=== PATIENT | male | born 1930 | race Caucasian/White ===

== ENCOUNTER 2017-10-25 16:57 | Inpatient (IN) | payer MEDICARE, OTHER ==
[~2017-10-25] VITALS: Ht 188 cm; Wt 107.3 kg
[~2017-10-25 16:57] MED LIST: ESOM40CA39 PO; PRED-188 PO
[2017-10-25] MEDS ORDERED: SODIUM CHLORIDE 0.9% 1,000 ML IV ONE (17:12)
[2017-10-25 18:17] LABS: Hematocrit 39.4 % (41.0-53.0); Hemoglobin 12.7 g/dL (13.5-17.5); Mean Corpuscular Hemoglobin 29.6 pg (28.0-32.0); Mean Corpuscular Hgb Conc. 32.2 g/dL (32.0-36.0); Platelet Count (auto) 244 10^3/uL (140-450); Red Blood Cells 4.29 10^6/uL (4.5-5.90); Red Cell Distribution Width 17.2 % (11.8-14.3)
[2017-10-25 18:28] LABS: INR 0.95 (0.9-1.15); Partial Thromboplastin Time 24.5 sec (22.64-33.71); Prothrombin Time 10.4 sec (9.37-12.3)
[2017-10-25 18:32] LABS: Albumin 2.7 g/dL (3.4-5.0); BUN/Creatinine Ratio 16.8; Calcium 8.9 mg/dL (8.5-10.1); Potassium 4.9 mmol/L (3.5-5.1)
[2017-10-25 18:34] LABS: Bilirubin, Total 0.3 mg/dL (0.2-1.0); Total Protein 6.7 g/dL (6.4-8.2)
[2017-10-25 18:36] LABS: Lactic Acid w/Reflex 3.8 mmol/L (0.4-2.0)
[2017-10-25 18:38] LABS: Band Neutrophils % (manual) 0; Basophils % (manual) 0 (0.0-2.0); Blast Cells 0; Eosinophils % (manual) 0 (0-7); Promyelocytes % 0; Reactive Lymphocytes 0
[2017-10-25 18:51] LABS: Lymphocytes % (manual) 9 (10.0-50.0); Metamyelocytes % 1; Monocytes % (manual) 1 (0-12); Myelocytes % 1
[2017-10-25 20:59] LABS: Urine Bacteria MOD /hpf (None Seen); Urine Blood 2+ /uL (Negative); Urine Specific Gravity 1.018 (1.001-1.035); Urine WBC 2543 /hpf (0 - 3); Urine WBC Clumps PRESENT /hpf (None Seen)
[2017-10-25] MEDS ORDERED: cefTRIAXone 1GM/10ml IVPUSH 10 ML IV ONE (21:15)
[2017-10-26] VITALS (7 sets, daily range): BP systolic 99–139; BP diastolic 62–82
[2017-10-26] MEDS ORDERED: TEMAZEPAM 15 MG CAP PO PRN (02:00)
[2017-10-26 09:51] LABS: Basophils # (auto) 0 uL; Basophils % (auto) 0.3 % (0.0-2.0); Eosinophils # (auto) 0 uL; Eosinophils % (auto) 0.2 % (0.0-7.0); Hematocrit 40.1 % (41.0-53.0); Hemoglobin 12.8 g/dL (13.5-17.5); Lymphocytes # (auto) 3.4 uL; Lymphocytes % (auto) 27.1 % (10.0-50.0); Mean Corpuscular Volume 90.4 fL (80.0-100.0); Monocytes % (auto) 7.8 % (0.0-12.0); Neutrophils % (auto) 64.6 % (37.0-80.0); Nucleated Red Blood Cells % 0.2 %; Platelet Count (auto) 253 10^3/uL (140-450); Red Blood Cells 4.43 10^6/uL (4.5-5.90); Red Cell Distribution Width 17.2 % (11.8-14.3); White Blood Cell 12.4 10^3/uL (4.4-10.8)
[2017-10-26] MEDS: METOPROLOL TARTRATE 25 MG TAB PO SCH ×2 (10:00→21:54)
[2017-10-26] MEDS: AMIODARONE HCL 200 MG TAB PO SCH (10:01)
[2017-10-26] MEDS: predniSONE 5 MG TAB PO SCH (10:01)
[2017-10-26 10:16] LABS: BUN/Creatinine Ratio 18.1; Calcium 8.9 mg/dL (8.5-10.1)
[2017-10-26] MEDS ORDERED: PANTOPRAZOLE 40 MG TAB PO ONE (14:15)
[2017-10-26] MEDS ORDERED: ENOXAPARIN SOD 40 MG/0.4 ML SYRINGE SC ONE (14:15)
[2017-10-26 14:21] LABS: Urine Bacteria NONE SEEN /hpf (None Seen); Urine Blood 1+ /uL (Negative); Urine Mucus FEW (None Seen); Urine Specific Gravity 1.018 (1.001-1.035); Urine WBC 417 /hpf (0 - 3); Urine WBC Clumps PRESENT /hpf (None Seen)
[2017-10-26] MEDS ORDERED: NITR-48 PO (18:23)
[2017-10-26] MEDS: SODIUM CHLORIDE 0.9% 1,000 ML IV SCH (18:47)
[2017-10-26] MEDS ORDERED: AMIO100T3 PO (19:19)
[2017-10-26] MEDS ORDERED: METO25TA5 PO (19:19)
[2017-10-26] MEDS ORDERED: FLUC100T34 PO (19:19)
[2017-10-26] MEDS ORDERED: ZINC20OI TOP (19:19)
[2017-10-26] MEDS ORDERED: ACET-1304 PO (19:19)
[2017-10-26] MEDS: cefTRIAXone 1GM/10ml IVPUSH 10 ML IV SCH (21:52)
[2017-10-27] VITALS (7 sets, daily range): BP systolic 93–117; BP diastolic 53–69
[2017-10-27 06:03] LABS: Hematocrit 37.8 % (41.0-53.0); Hemoglobin 12.4 g/dL (13.5-17.5); Mean Corpuscular Hemoglobin 29.4 pg (28.0-32.0); Mean Corpuscular Hgb Conc. 32.8 g/dL (32.0-36.0); Mean Corpuscular Volume 89.7 fL (80.0-100.0); Platelet Count (auto) 237 10^3/uL (140-450); Red Blood Cells 4.22 10^6/uL (4.5-5.90); Red Cell Distribution Width 17.2 % (11.8-14.3); White Blood Cell 11.6 10^3/uL (4.4-10.8)
[2017-10-27 06:21] LABS: Magnesium 2.2 mg/dL (1.6-2.6); Potassium 3.8 mmol/L (3.5-5.1)
[2017-10-27 06:29] LABS: Band Neutrophils % (manual) 0; Basophils % (manual) 0 (0.0-2.0); Blast Cells 0; Eosinophils % (manual) 0 (0-7); Metamyelocytes % 0; Myelocytes % 0; Promyelocytes % 0; Reactive Lymphocytes 0
[2017-10-27 06:42] LABS: BUN/Creatinine Ratio 18.8
[2017-10-27] MEDS: SODIUM CHLORIDE 0.9% 1,000 ML IV SCH (06:46)
[2017-10-27] MEDS: ONDANSETRON HCL 4 MG/2 ML VIAL IV PRN (06:47)
[2017-10-27 08:08] LABS: Lymphocytes % (manual) 25 (10.0-50.0); Monocytes % (manual) 8 (0-12)
[2017-10-27] MEDS: ENOXAPARIN SOD 40 MG/0.4 ML SYRINGE SC SCH (09:39)
[2017-10-27] MEDS: AMIODARONE HCL 200 MG TAB PO SCH (09:39)
[2017-10-27] MEDS: METOPROLOL TARTRATE 25 MG TAB PO SCH ×2 (09:39→22:00)
[2017-10-27] MEDS: PANTOPRAZOLE 40 MG TAB PO SCH (09:40)
[2017-10-27] MEDS: predniSONE 5 MG TAB PO SCH (09:40)
[2017-10-27] MEDS: cefTRIAXone 1GM/10ml IVPUSH 10 ML IV SCH (22:22)
[2017-10-28 05:25] VITALS: BP 110/67
[2017-10-28] MEDS: SODIUM CHLORIDE 0.9% 1,000 ML IV SCH (05:58)
[2017-10-28 06:16] LABS: Basophils # (auto) 0 uL; Basophils % (auto) 0.1 % (0.0-2.0); Eosinophils # (auto) 0 uL; Eosinophils % (auto) 0.3 % (0.0-7.0); Hematocrit 35.1 % (41.0-53.0); Hemoglobin 11.7 g/dL (13.5-17.5); Lymphocytes # (auto) 2.2 uL; Lymphocytes % (auto) 22.5 % (10.0-50.0); Mean Corpuscular Hemoglobin 29.8 pg (28.0-32.0); Mean Corpuscular Hgb Conc. 33.4 g/dL (32.0-36.0); Mean Corpuscular Volume 89.4 fL (80.0-100.0); Monocytes # (auto) 0.8 uL; Monocytes % (auto) 7.8 % (0.0-12.0); Neutrophils # (auto) 6.8 uL; Neutrophils % (auto) 69.3 % (37.0-80.0); Nucleated Red Blood Cells % 0.1 %; Platelet Count (auto) 213 10^3/uL (140-450); Red Blood Cells 3.93 10^6/uL (4.5-5.90); Red Cell Distribution Width 16.8 % (11.8-14.3); White Blood Cell 9.8 10^3/uL (4.4-10.8)
[2017-10-28 06:30] LABS: Albumin 2.5 g/dL (3.4-5.0); BUN/Creatinine Ratio 17.6; Potassium 3.7 mmol/L (3.5-5.1)
[2017-10-28 06:32] LABS: Bilirubin, Total 0.2 mg/dL (0.2-1.0); Total Protein 5.7 g/dL (6.4-8.2)
[2017-10-28 08:30] VITALS: BP 128/65
[2017-10-28 09:00] VITALS: BP 128/65
[2017-10-28] MEDS: ENOXAPARIN SOD 40 MG/0.4 ML SYRINGE SC SCH (09:42)
[2017-10-28] MEDS: AMIODARONE HCL 200 MG TAB PO SCH (09:43)
[2017-10-28] MEDS: predniSONE 5 MG TAB PO SCH (09:43)
[2017-10-28] MEDS: METOPROLOL TARTRATE 25 MG TAB PO SCH ×2 (09:43→22:13)
[2017-10-28] MEDS: PANTOPRAZOLE 40 MG TAB PO SCH (09:43)
[2017-10-28 13:00] VITALS: BP 110/68
[2017-10-28] MEDS ORDERED: LACTULOSE 20Gm/30ML SOLN PO ONE (15:45)
[2017-10-28] MEDS ORDERED: FUROSEMIDE 40 MG/4 ML VIAL IV ONE (15:45)
[2017-10-28 17:00] VITALS: BP 123/65
[2017-10-28] MEDS: ONDANSETRON HCL 4 MG/2 ML VIAL IV PRN (18:26)
[2017-10-28 22:00] VITALS: BP 111/62
[2017-10-28] MEDS: cefTRIAXone 1GM/10ml IVPUSH 10 ML IV SCH (22:12)
[2017-10-29 05:00] VITALS: BP 117/75
[2017-10-29 07:05] LABS: Hematocrit 40.3 % (41.0-53.0); Hemoglobin 13.3 g/dL (13.5-17.5); Mean Corpuscular Hemoglobin 29.5 pg (28.0-32.0); Mean Corpuscular Hgb Conc. 32.9 g/dL (32.0-36.0); Mean Corpuscular Volume 89.8 fL (80.0-100.0); Platelet Count (auto) 231 10^3/uL (140-450); Red Blood Cells 4.49 10^6/uL (4.5-5.90)
[2017-10-29 07:21] LABS: Albumin 2.9 g/dL (3.4-5.0); BUN/Creatinine Ratio 11.1; Calcium 8.3 mg/dL (8.5-10.1); Potassium 3.4 mmol/L (3.5-5.1)
[2017-10-29 07:24] LABS: Bilirubin, Total 0.3 mg/dL (0.2-1.0); Total Protein 6.8 g/dL (6.4-8.2)
[2017-10-29 07:48] LABS: Band Neutrophils % (manual) 0; Basophils % (manual) 0 (0.0-2.0); Blast Cells 0; Eosinophils % (manual) 0 (0-7); Metamyelocytes % 0; Myelocytes % 0; Promyelocytes % 0; Reactive Lymphocytes 0
[2017-10-29 08:00] VITALS: BP 93/55
[2017-10-29] MEDS: AMIODARONE HCL 200 MG TAB PO SCH (09:21)
[2017-10-29] MEDS: predniSONE 5 MG TAB PO SCH (09:21)
[2017-10-29] MEDS: METOPROLOL TARTRATE 25 MG TAB PO SCH ×2 (09:21→22:18)
[2017-10-29] MEDS: ACETAMINOPHEN 500 MG TAB PO PRN (09:22)
[2017-10-29] MEDS: PANTOPRAZOLE 40 MG TAB PO SCH (09:22)
[2017-10-29] MEDS: ENOXAPARIN SOD 40 MG/0.4 ML SYRINGE SC SCH (09:22)
[2017-10-29 10:35] LABS: Lymphocytes % (manual) 17 (10.0-50.0); Monocytes % (manual) 11 (0-12)
[2017-10-29 12:00] VITALS: BP 95/52
[2017-10-29 17:00] VITALS: BP 100/53
[2017-10-29] MEDS: PIPERACILLIN-TAZOB 2.25GM 50 ML IV SCH (18:02)
[2017-10-29] MEDS ORDERED: PIPERACILLIN-TAZOB 2.25GM 50 ML IV ONE ×2 (20:25→20:26)
[2017-10-29 21:53] VITALS: BP 106/53
[2017-10-29] MEDS: ONDANSETRON HCL 4 MG/2 ML VIAL IV PRN (22:19)
[2017-10-30] MEDS: PIPERACILLIN-TAZOB 2.25GM 50 ML IV SCH ×4 (00:04→18:44)
[2017-10-30 04:54] VITALS: BP 110/58
[2017-10-30 08:00] VITALS: BP 110/60
[2017-10-30] MEDS: AMIODARONE HCL 200 MG TAB PO SCH (09:53)
[2017-10-30] MEDS: predniSONE 5 MG TAB PO SCH (09:53)
[2017-10-30] MEDS: PANTOPRAZOLE 40 MG TAB PO SCH (09:53)
[2017-10-30] MEDS: METOPROLOL TARTRATE 25 MG TAB PO SCH ×2 (09:54→22:00)
[2017-10-30] MEDS: ENOXAPARIN SOD 40 MG/0.4 ML SYRINGE SC SCH (09:54)
[2017-10-30 11:53] VITALS: BP 135/62
[2017-10-30 17:03] VITALS: BP 93/58
[2017-10-30 17:49] VITALS: BP 118/62
[2017-10-30] MEDS: ONDANSETRON HCL 4 MG/2 ML VIAL IV PRN (18:07)
[2017-10-30 22:00] VITALS: BP 91/52
[2017-10-31] VITALS (8 sets, daily range): BP systolic 92–114; BP diastolic 52–67
[2017-10-31] MEDS: PIPERACILLIN-TAZOB 2.25GM 50 ML IV SCH ×4 (00:19→18:17)
[2017-10-31] MEDS: ONDANSETRON HCL 4 MG/2 ML VIAL IV PRN ×3 (05:39→18:17)
[2017-10-31] MEDS: ACETAMINOPHEN 500 MG TAB PO PRN ×2 (09:49→20:02)
[2017-10-31] MEDS: PANTOPRAZOLE 40 MG TAB PO SCH (09:50)
[2017-10-31] MEDS: AMIODARONE HCL 200 MG TAB PO SCH (09:50)
[2017-10-31] MEDS: METOPROLOL TARTRATE 25 MG TAB PO SCH ×2 (09:50→22:00)
[2017-10-31] MEDS: ENOXAPARIN SOD 40 MG/0.4 ML SYRINGE SC SCH (09:57)
[2017-10-31] MEDS: predniSONE 5 MG TAB PO SCH (10:00)
[2017-10-31] MEDS: BUDESONIDE (INHALATION) 0.5 MG/2 ML NEB NEB SCH (18:58)
[2017-10-31] MEDS: IPRATROPIUM BROM 0.5 MG/2.5ML INH SOL NEB SCH ×2 (18:58→22:23)
[2017-11-01] MEDS: PIPERACILLIN-TAZOB 2.25GM 50 ML IV SCH ×5 (00:01→23:55)
[2017-11-01] MEDS: IPRATROPIUM BROM 0.5 MG/2.5ML INH SOL NEB SCH ×6 (02:28→22:47)
[2017-11-01 05:00] VITALS: BP 135/72
[2017-11-01] MEDS: BUDESONIDE (INHALATION) 0.5 MG/2 ML NEB NEB SCH ×2 (06:45→18:44)
[2017-11-01 06:49] LABS: Basophils # (auto) 0 uL; Basophils % (auto) 0.2 % (0.0-2.0); Eosinophils # (auto) 0 uL; Eosinophils % (auto) 0.2 % (0.0-7.0); Hematocrit 37.9 % (41.0-53.0); Hemoglobin 12.7 g/dL (13.5-17.5); Lymphocytes # (auto) 1.9 uL; Lymphocytes % (auto) 30.7 % (10.0-50.0); Mean Corpuscular Hemoglobin 30.1 pg (28.0-32.0); Mean Corpuscular Hgb Conc. 33.5 g/dL (32.0-36.0); Mean Corpuscular Volume 89.8 fL (80.0-100.0); Monocytes # (auto) 0.6 uL; Monocytes % (auto) 9.9 % (0.0-12.0); Neutrophils # (auto) 3.6 uL; Nucleated Red Blood Cells % 0.2 %; Platelet Count (auto) 149 10^3/uL (140-450); Red Blood Cells 4.23 10^6/uL (4.5-5.90); Red Cell Distribution Width 17.2 % (11.8-14.3); White Blood Cell 6.1 10^3/uL (4.4-10.8)
[2017-11-01 07:12] LABS: Albumin 2.6 g/dL (3.4-5.0); BUN/Creatinine Ratio 7.9; Bilirubin, Total 0.3 mg/dL (0.2-1.0); Calcium 8.3 mg/dL (8.5-10.1); Potassium 3.5 mmol/L (3.5-5.1); Total Protein 6.4 g/dL (6.4-8.2)
[2017-11-01 09:00] VITALS: BP 141/72
[2017-11-01] MEDS: predniSONE 5 MG TAB PO SCH (09:35)
[2017-11-01] MEDS: PANTOPRAZOLE 40 MG TAB PO SCH (09:35)
[2017-11-01] MEDS: METOPROLOL TARTRATE 25 MG TAB PO SCH ×2 (09:35→22:07)
[2017-11-01] MEDS: AMIODARONE HCL 200 MG TAB PO SCH (09:36)
[2017-11-01] MEDS: ENOXAPARIN SOD 40 MG/0.4 ML SYRINGE SC SCH (09:36)
[2017-11-01] MEDS: HYDROcodone-ACET 5/325MG TAB PO PRN (12:31)
[2017-11-01 13:00] VITALS: BP 100/58
[2017-11-01] MEDS: ACETAMINOPHEN 500 MG TAB PO PRN (16:33)
[2017-11-01 16:47] VITALS: BP 94/58
[2017-11-01] MEDS: BOOST PLUS 8 ounce PO SCH (18:00)
[2017-11-01 20:00] VITALS: BP 112/69
[2017-11-01 21:52] VITALS: BP 112/69
[2017-11-02] MEDS: IPRATROPIUM BROM 0.5 MG/2.5ML INH SOL NEB SCH ×5 (02:34→18:30)
[2017-11-02 05:00] VITALS: BP 121/72
[2017-11-02] MEDS: HYDROcodone-ACET 5/325MG TAB PO PRN ×2 (05:08→09:53)
[2017-11-02] MEDS: PIPERACILLIN-TAZOB 2.25GM 50 ML IV SCH ×3 (05:59→16:33)
[2017-11-02] MEDS: BUDESONIDE (INHALATION) 0.5 MG/2 ML NEB NEB SCH (07:24)
[2017-11-02] MEDS: BOOST PLUS 8 ounce PO SCH ×3 (08:00→18:10)
[2017-11-02 08:58] VITALS: BP 150/79
[2017-11-02] MEDS: AMIODARONE HCL 200 MG TAB PO SCH (09:53)
[2017-11-02] MEDS: ENOXAPARIN SOD 40 MG/0.4 ML SYRINGE SC SCH (09:53)
[2017-11-02] MEDS: PANTOPRAZOLE 40 MG TAB PO SCH (09:54)
[2017-11-02] MEDS: METOPROLOL TARTRATE 25 MG TAB PO SCH (09:54)
[2017-11-02] MEDS: predniSONE 5 MG TAB PO SCH (09:54)
[2017-11-02 16:29] VITALS: BP 119/69
[2017-11-02] MEDS: ONDANSETRON HCL 4 MG/2 ML VIAL IV PRN (18:34)
== END 2017-11-02 19:20 | disposition hospice, home (50) | DRG 698 ==
LOC: EDUNIT# 16:57 → EDBD 16:57 → ER 16:57 → TELE 16:58 → TELE-WESTW 10-26 09:01
PROVIDERS: ADMIT Nurse Practitioner Family; ATTEND Internal Medicine
DX: T83.518A Infection and inflammatory reaction due to other urinary catheter, initial encounter (principal); A41.9 Sepsis, unspecified organism; N17.0 Acute kidney failure with tubular necrosis; E43 Unspecified severe protein-calorie malnutrition; K51.90 Ulcerative colitis, unspecified, without complications; E88.09 Other disorders of plasma-protein metabolism, not elsewhere classified; I13.0 Hypertensive heart and chronic kidney disease with heart failure and stage 1 through stage 4 chronic kidney disease, or unspecified chronic kidney disease; I50.9 Heart failure, unspecified; N18.3 Chronic kidney disease, stage 3 (moderate); N30.00 Acute cystitis without hematuria; I48.0 Paroxysmal atrial fibrillation; D64.9 Anemia, unspecified; K59.00 Constipation, unspecified; Z66 Do not resuscitate; J44.9 Chronic obstructive pulmonary disease, unspecified; E66.9 Obesity, unspecified; B96.5 Pseudomonas (aeruginosa) (mallei) (pseudomallei) as the cause of diseases classified elsewhere; Y83.9 Surgical procedure, unspecified as the cause of abnormal reaction of the patient, or of later complication, without mention of misadventure at the time of the procedure; Z68.30 Body mass index [BMI] 30.0-30.9, adult; Z74.01 Bed confinement status; Z88.1 Allergy status to other antibiotic agents; Z79.899 Other long term (current) drug therapy; Z90.49 Acquired absence of other specified parts of digestive tract
CPT/HCPCS: 36415; 51702; 71045; 80048; 80053; 81001; 83605; 83735; 85007; 85025; 85027; 85610; 85730; 87040; 87086; 87088; 87186; 87493; 93005; 94640; 94761; 96361; 96374; J2405; J2543

== ENCOUNTER 2017-11-08 07:30 | Inpatient (IN) | payer MEDICARE, OTHER ==
[~2017-11-08] VITALS: Ht 188 cm; Wt 116.1 kg
[~2017-11-08 07:30] MED LIST changes: +ACET-1304 PO; +AMIO100T3 PO; -ESOM40CA39 PO; +FLUC100T34 PO; +METO25TA5 PO; +NITR-48 PO; +ZINC20OI TOP
[2017-11-08 08:29] LABS: Basophils # (auto) 0 uL; Basophils % (auto) 0.3 % (0.0-2.0); Eosinophils # (auto) 0 uL; Eosinophils % (auto) 0.2 % (0.0-7.0); Hematocrit 39.8 % (41.0-53.0); Hemoglobin 13.1 g/dL (13.5-17.5); Lymphocytes # (auto) 1.6 uL; Lymphocytes % (auto) 20.3 % (10.0-50.0); Mean Corpuscular Hemoglobin 29.2 pg (28.0-32.0); Mean Corpuscular Hgb Conc. 32.9 g/dL (32.0-36.0); Mean Corpuscular Volume 88.7 fL (80.0-100.0); Monocytes # (auto) 0.9 uL; Monocytes % (auto) 11.2 % (0.0-12.0); Neutrophils # (auto) 5.4 uL; Nucleated Red Blood Cells % 0.2 %; Platelet Count (auto) 208 10^3/uL (140-450); Red Blood Cells 4.49 10^6/uL (4.5-5.90); Red Cell Distribution Width 17.7 % (11.8-14.3)
[2017-11-08 08:45] LABS: Albumin 2.7 g/dL (3.4-5.0); BUN/Creatinine Ratio 6.9; Bilirubin, Total 0.6 mg/dL (0.2-1.0); Potassium 3.8 mmol/L (3.5-5.1); Total Protein 7.1 g/dL (6.4-8.2)
[2017-11-08] MEDS ORDERED: SODIUM CHLORIDE 0.9% 1,000 ML IV ONE (08:54)
[2017-11-08] MEDS ORDERED: cefTRIAXone 1GM/10ml IVPUSH 10 ML IV ONE (09:00)
[2017-11-08 10:03] LABS: Urine Bacteria NONE SEEN /hpf (None Seen); Urine Blood 3+ /uL (Negative); Urine Budding Yeast MANY /hpf (None Seen); Urine WBC 2628 /hpf (0 - 3)
[2017-11-08 10:17] LABS: INR 0.99 (0.9-1.15); Partial Thromboplastin Time 24.5 sec (22.64-33.71); Prothrombin Time 10.8 sec (9.37-12.3)
[2017-11-08] MEDS ORDERED: AMIODARONE HCL 200 MG TAB PO ONE (10:45)
[2017-11-08] MEDS ORDERED: METOPROLOL TARTRATE 25 MG TAB PO ONE (10:45)
[2017-11-08] MEDS ORDERED: FLUCONAZOLE 100 MG TAB PO ONE (10:45)
[2017-11-08] MEDS ORDERED: predniSONE 20 MG TAB PO ONE (10:45)
[2017-11-08] MEDS: SODIUM CHLORIDE 0.9% 1,000 ML IV SCH ×2 (10:50→19:33)
[2017-11-08] MEDS ORDERED: HYDROcodone-ACET 5/325MG TAB PO PRN (11:00)
[2017-11-08] MEDS ORDERED: ONDANSETRON HCL 4 MG/2 ML VIAL IV PRN (11:00)
[2017-11-08] MEDS ORDERED: TEMAZEPAM 15 MG CAP PO PRN (11:00)
[2017-11-08] MEDS ORDERED: ACETAMINOPHEN 325 MG TAB PO PRN (11:00)
[2017-11-08] MEDS ORDERED: MORPHINE SULFATE 4 MG/ML SYR/VIAL IV PRN (11:00)
[2017-11-08] MEDS ORDERED: FAMOTIDINE 20 MG TAB PO SCH (11:30)
[2017-11-08] MEDS: BOOST PLUS 8 ounce PO SCH ×2 (12:00→18:00)
[2017-11-08] MEDS: ZINC OXIDE 20 % OINT 30GM TOP SCH ×2 (12:00→18:00)
[2017-11-08] MEDS: METOPROLOL TARTRATE 25 MG TAB PO SCH (22:00)
[2017-11-08] MEDS: PANTOPRAZOLE 40 MG TAB PO SCH (22:00)
[2017-11-08] MEDS: ASCORBIC ACID 500 MG TAB PO SCH (22:00)
[2017-11-08] MEDS ORDERED: METOPROLOL TARTRATE 1MG/1ML-5ML VIAL IV ONE (23:00)
[2017-11-08] MEDS ORDERED: PANTOPRAZOLE 40 MG/10 ML VIAL IV ONE (23:00)
[2017-11-08 23:30] VITALS: BP 133/73
[2017-11-08 23:57] VITALS: BP 133/73
[2017-11-09] MEDS: SODIUM CHLORIDE 0.9% 1,000 ML IV SCH ×3 (05:28→22:00)
[2017-11-09 05:54] VITALS: BP 155/75
[2017-11-09] MEDS: BOOST PLUS 8 ounce PO SCH ×3 (07:27→18:00)
[2017-11-09 07:29] LABS: Basophils # (auto) 0 uL; Basophils % (auto) 0.3 % (0.0-2.0); Eosinophils # (auto) 0.1 uL; Eosinophils % (auto) 1.6 % (0.0-7.0); Hematocrit 39.4 % (41.0-53.0); Hemoglobin 12.7 g/dL (13.5-17.5); Lymphocytes # (auto) 2.4 uL; Lymphocytes % (auto) 28.1 % (10.0-50.0); Mean Corpuscular Hemoglobin 29.3 pg (28.0-32.0); Mean Corpuscular Hgb Conc. 32.3 g/dL (32.0-36.0); Mean Corpuscular Volume 90.7 fL (80.0-100.0); Monocytes # (auto) 0.9 uL; Monocytes % (auto) 10.7 % (0.0-12.0); Neutrophils # (auto) 5.1 uL; Neutrophils % (auto) 59.3 % (37.0-80.0); Nucleated Red Blood Cells % 0.1 %; Platelet Count (auto) 231 10^3/uL (140-450); Red Blood Cells 4.34 10^6/uL (4.5-5.90); Red Cell Distribution Width 17.9 % (11.8-14.3); White Blood Cell 8.6 10^3/uL (4.4-10.8)
[2017-11-09 07:47] LABS: Albumin 2.6 g/dL (3.4-5.0); Calcium 8.5 mg/dL (8.5-10.1); Potassium 3.8 mmol/L (3.5-5.1)
[2017-11-09 07:51] LABS: BUN/Creatinine Ratio 6.8
[2017-11-09 07:53] LABS: Bilirubin, Total 0.5 mg/dL (0.2-1.0); Total Protein 6.6 g/dL (6.4-8.2)
[2017-11-09] MEDS ORDERED: NALOXONE HCL 0.4 MG/ML VIAL ONE (08:14)
[2017-11-09] MEDS ORDERED: LIDOCAINE VISCOUS 2% 15ML UD ONE (08:14)
[2017-11-09] MEDS ORDERED: SODIUM CHLORIDE LOCK 10 ML ONE (08:14)
[2017-11-09] MEDS ORDERED: FLUMAZENIL 0.1 MG/ML INJ 10ML MDV IV ONE (08:14)
[2017-11-09 08:15] VITALS: BP 127/67
[2017-11-09] MEDS ORDERED: MIDAZOLAM HCL 5 MG/ML-1ML VIAL ONE (08:15)
[2017-11-09] MEDS ORDERED: fentaNYL CITRATE 100 MCG/2 ML VL ONE (08:16)
[2017-11-09] MEDS ORDERED: diphenhdrAMINE HCL 50 MG/1 ML VL ONE (08:16)
[2017-11-09 08:33] VITALS: BP 127/67
[2017-11-09] MEDS ORDERED: cefTRIAXone 1GM/10ml IVPUSH 10 ML IV SCH (09:00)
[2017-11-09] MEDS: FLUCONAZOLE 100 MG TAB PO SCH (10:00)
[2017-11-09] MEDS: METOPROLOL TARTRATE 25 MG TAB PO SCH ×2 (10:00→22:38)
[2017-11-09] MEDS: PANTOPRAZOLE 40 MG TAB PO SCH ×2 (10:00→22:38)
[2017-11-09] MEDS: ASCORBIC ACID 500 MG TAB PO SCH ×2 (10:00→22:38)
[2017-11-09] MEDS: AMIODARONE HCL 200 MG TAB PO SCH (10:00)
[2017-11-09] MEDS: predniSONE 20 MG TAB PO SCH (10:00)
[2017-11-09] MEDS: MULTIPLE VITAMIN TAB PO SCH (10:00)
[2017-11-09] MEDS: ZINC OXIDE 20 % OINT 30GM TOP SCH ×3 (12:00→18:00)
[2017-11-09] MEDS ORDERED: VANCOMYCIN 1GM/250ML 250 ML IV ONE (15:30)
[2017-11-09] MEDS ORDERED: VANCOMYCIN PER PHARMACY 0 MG IV SCH (15:30)
[2017-11-09] MEDS ORDERED: VANCOMYCIN 1,500 MG in D5W 5% 250 ML IV ONE (16:30)
[2017-11-09 16:37] VITALS: BP 139/88
[2017-11-09 20:00] VITALS: BP 119/73
[2017-11-09 21:57] VITALS: BP 119/73
[2017-11-10] MEDS ORDERED: PNEUMOCOCCAL VACC POLYS 25 MCG/0.5 ML VIAL IM ONE (04:30)
[2017-11-10] MEDS ORDERED: INFLUENZA QUAD 2017-2018 0.5 ML SYRG IM ONE (04:30)
[2017-11-10 04:58] VITALS: BP 136/73
[2017-11-10] MEDS: ZINC OXIDE 20 % OINT 30GM TOP SCH ×4 (06:00→18:00)
[2017-11-10] MEDS: SODIUM CHLORIDE 0.9% 1,000 ML IV SCH ×3 (06:28→21:24)
[2017-11-10 06:57] LABS: Basophils # (auto) 0 uL; Basophils % (auto) 0.2 % (0.0-2.0); Eosinophils # (auto) 0.1 uL; Eosinophils % (auto) 2.1 % (0.0-7.0); Hematocrit 38.2 % (41.0-53.0); Hemoglobin 12.6 g/dL (13.5-17.5); Lymphocytes # (auto) 1.4 uL; Lymphocytes % (auto) 24.9 % (10.0-50.0); Mean Corpuscular Hemoglobin 29.8 pg (28.0-32.0); Mean Corpuscular Hgb Conc. 33.1 g/dL (32.0-36.0); Mean Corpuscular Volume 90.1 fL (80.0-100.0); Monocytes # (auto) 0.6 uL; Monocytes % (auto) 11.2 % (0.0-12.0); Neutrophils # (auto) 3.4 uL; Neutrophils % (auto) 61.6 % (37.0-80.0); Nucleated Red Blood Cells % 0.1 %; Platelet Count (auto) 197 10^3/uL (140-450); Red Blood Cells 4.24 10^6/uL (4.5-5.90); Red Cell Distribution Width 17.9 % (11.8-14.3); White Blood Cell 5.5 10^3/uL (4.4-10.8)
[2017-11-10 07:14] LABS: Albumin 2.5 g/dL (3.4-5.0); BUN/Creatinine Ratio 7.2; Calcium 8.4 mg/dL (8.5-10.1); Potassium 3.4 mmol/L (3.5-5.1)
[2017-11-10 07:23] LABS: Bilirubin, Total 0.4 mg/dL (0.2-1.0); Total Protein 6.5 g/dL (6.4-8.2)
[2017-11-10 08:00] VITALS: BP 146/74
[2017-11-10] MEDS: BOOST PLUS 8 ounce PO SCH ×3 (08:00→18:26)
[2017-11-10] MEDS ORDERED: CIPROFLOXACIN HCL 500 MG TAB PO SCH (10:00)
[2017-11-10 12:00] VITALS: BP_SYST 145; BP_SYST 159; BP_DIAS 67; BP_DIAS 77
[2017-11-10] MEDS: LEVOFLOXACIN 500MG 100 ML IV SCH (12:03)
[2017-11-10] MEDS: AMIODARONE HCL 200 MG TAB PO SCH (12:04)
[2017-11-10] MEDS: predniSONE 20 MG TAB PO SCH (12:04)
[2017-11-10] MEDS: FLUCONAZOLE 100 MG TAB PO SCH (12:04)
[2017-11-10] MEDS: METOPROLOL TARTRATE 25 MG TAB PO SCH ×2 (12:05→22:47)
[2017-11-10] MEDS: MULTIPLE VITAMIN TAB PO SCH (12:06)
[2017-11-10] MEDS: PANTOPRAZOLE 40 MG TAB PO SCH ×2 (12:06→22:47)
[2017-11-10] MEDS: ASCORBIC ACID 500 MG TAB PO SCH ×2 (12:06→22:48)
[2017-11-10 17:00] VITALS: BP 133/81
[2017-11-10] MEDS: METOCLOPRAMIDE HCL 5MG/ml INJ 2ml VIAL IV SCH (18:26)
[2017-11-10] MEDS: VANCOMYCIN 1,250 MG in D5W 5% 250 ML IV SCH (20:04)
[2017-11-10 22:00] VITALS: BP 135/76
[2017-11-10] MEDS ORDERED: FAMOTIDINE (10MG/ML) 2ML VL IV SCH (22:00)
[2017-11-10] MEDS: FAMOTIDINE (10MG/ML) 2ML VL IV SCH (22:47)
[2017-11-11] MEDS: METOCLOPRAMIDE HCL 5MG/ml INJ 2ml VIAL IV SCH ×4 (01:03→18:24)
[2017-11-11 05:00] VITALS: BP_SYST 110; BP_SYST 93; BP_DIAS 60; BP_DIAS 64
[2017-11-11] MEDS: SODIUM CHLORIDE 0.9% 1,000 ML IV SCH ×3 (05:07→22:18)
[2017-11-11] MEDS: ZINC OXIDE 20 % OINT 30GM TOP SCH ×4 (06:00→18:00)
[2017-11-11 06:52] LABS: Hemoglobin 11.3 g/dL (13.5-17.5); Mean Corpuscular Hgb Conc. 33.3 g/dL (32.0-36.0); Platelet Count (auto) 184 10^3/uL (140-450); Red Blood Cells 3.78 10^6/uL (4.5-5.90); Red Cell Distribution Width 17.3 % (11.8-14.3); White Blood Cell 6.1 10^3/uL (4.4-10.8)
[2017-11-11 07:03] LABS: Albumin 2.2 g/dL (3.4-5.0); BUN/Creatinine Ratio 7.4; Calcium 8.1 mg/dL (8.5-10.1); Potassium 3.6 mmol/L (3.5-5.1)
[2017-11-11 07:14] LABS: Bilirubin, Total 0.4 mg/dL (0.2-1.0)
[2017-11-11 07:19] LABS: Basophils % (manual) 0 (0.0-2.0); Blast Cells 0; Eosinophils % (manual) 0 (0-7); Metamyelocytes % 0; Myelocytes % 0; Promyelocytes % 0; Reactive Lymphocytes 0
[2017-11-11] MEDS: BOOST PLUS 8 ounce PO SCH ×3 (08:00→18:20)
[2017-11-11 08:29] LABS: Band Neutrophils % (manual) 2; Lymphocytes % (manual) 6 (10.0-50.0); Monocytes % (manual) 6 (0-12)
[2017-11-11 09:00] VITALS: BP 116/60
[2017-11-11] MEDS: LEVOFLOXACIN 500MG 100 ML IV SCH (10:37)
[2017-11-11] MEDS: FAMOTIDINE (10MG/ML) 2ML VL IV SCH ×2 (10:37→22:17)
[2017-11-11] MEDS: FLUCONAZOLE 100 MG TAB PO SCH (10:37)
[2017-11-11] MEDS: ASCORBIC ACID 500 MG TAB PO SCH ×2 (10:38→22:18)
[2017-11-11] MEDS: AMIODARONE HCL 200 MG TAB PO SCH (10:38)
[2017-11-11] MEDS: predniSONE 20 MG TAB PO SCH (10:38)
[2017-11-11] MEDS: MULTIPLE VITAMIN TAB PO SCH (10:38)
[2017-11-11] MEDS: PANTOPRAZOLE 40 MG TAB PO SCH ×2 (10:38→22:18)
[2017-11-11] MEDS: METOPROLOL TARTRATE 25 MG TAB PO SCH ×2 (10:39→22:18)
[2017-11-11 13:00] VITALS: BP 124/58
[2017-11-11 17:00] VITALS: BP 100/52
[2017-11-11] MEDS: VANCOMYCIN 1,250 MG in D5W 5% 250 ML IV SCH (20:21)
[2017-11-11 22:00] VITALS: BP 114/61
[2017-11-12] MEDS: METOCLOPRAMIDE HCL 5MG/ml INJ 2ml VIAL IV SCH ×4 (00:45→17:38)
[2017-11-12 05:00] VITALS: BP 118/65
[2017-11-12] MEDS: ZINC OXIDE 20 % OINT 30GM TOP SCH ×4 (05:31→17:39)
[2017-11-12] MEDS: SODIUM CHLORIDE 0.9% 1,000 ML IV SCH ×3 (05:41→23:10)
[2017-11-12 05:51] LABS: Hematocrit 32.6 % (41.0-53.0); Hemoglobin 10.9 g/dL (13.5-17.5); Mean Corpuscular Hemoglobin 29.8 pg (28.0-32.0); Mean Corpuscular Hgb Conc. 33.3 g/dL (32.0-36.0); Mean Corpuscular Volume 89.4 fL (80.0-100.0); Platelet Count (auto) 190 10^3/uL (140-450); Red Blood Cells 3.65 10^6/uL (4.5-5.90); Red Cell Distribution Width 17.3 % (11.8-14.3); White Blood Cell 6.2 10^3/uL (4.4-10.8)
[2017-11-12 05:59] LABS: Band Neutrophils % (manual) 0; Eosinophils % (manual) 0 (0-7)
[2017-11-12 06:00] LABS: Basophils % (manual) 0 (0.0-2.0); Blast Cells 0; Metamyelocytes % 0; Myelocytes % 0; Promyelocytes % 0; Reactive Lymphocytes 0
[2017-11-12 06:03] LABS: Albumin 2.2 g/dL (3.4-5.0); BUN/Creatinine Ratio 8.3; Calcium 8.2 mg/dL (8.5-10.1); Potassium 3.8 mmol/L (3.5-5.1)
[2017-11-12 06:13] LABS: Bilirubin, Total 0.3 mg/dL (0.2-1.0); Total Protein 5.6 g/dL (6.4-8.2)
[2017-11-12 06:35] LABS: Lymphocytes % (manual) 15 (10.0-50.0); Monocytes % (manual) 3 (0-12)
[2017-11-12 08:30] VITALS: BP 122/71
[2017-11-12] MEDS: FLUCONAZOLE 200MG/100ML 100 ML IV SCH (09:19)
[2017-11-12] MEDS: BOOST PLUS 8 ounce PO SCH ×3 (09:19→17:39)
[2017-11-12] MEDS: FAMOTIDINE (10MG/ML) 2ML VL IV SCH ×2 (09:19→21:43)
[2017-11-12] MEDS: predniSONE 20 MG TAB PO SCH (09:19)
[2017-11-12] MEDS: PANTOPRAZOLE 40 MG TAB PO SCH ×2 (09:20→21:43)
[2017-11-12] MEDS: MULTIPLE VITAMIN TAB PO SCH (09:20)
[2017-11-12] MEDS: AMIODARONE HCL 200 MG TAB PO SCH (09:20)
[2017-11-12] MEDS: ASCORBIC ACID 500 MG TAB PO SCH ×2 (09:21→21:43)
[2017-11-12] MEDS: METOPROLOL TARTRATE 25 MG TAB PO SCH ×2 (09:22→21:44)
[2017-11-12] MEDS: LEVOFLOXACIN 500MG 100 ML IV SCH (11:33)
[2017-11-12 13:00] VITALS: BP 102/57
[2017-11-12 17:00] VITALS: BP 113/62
[2017-11-12] MEDS: VANCOMYCIN 1,250 MG in D5W 5% 250 ML IV SCH (19:42)
[2017-11-12 22:22] VITALS: BP 120/80
[2017-11-13] MEDS: ZINC OXIDE 20 % OINT 30GM TOP SCH ×6 (00:06→23:54)
[2017-11-13] MEDS: METOCLOPRAMIDE HCL 5MG/ml INJ 2ml VIAL IV SCH ×5 (00:06→23:53)
[2017-11-13] MEDS: SODIUM CHLORIDE 0.9% 1,000 ML IV SCH ×2 (04:17→18:55)
[2017-11-13 04:51] VITALS: BP 123/76
[2017-11-13] MEDS: BOOST PLUS 8 ounce PO SCH ×3 (08:00→18:00)
[2017-11-13 09:00] VITALS: BP 131/69
[2017-11-13] MEDS: FLUCONAZOLE 200MG/100ML 100 ML IV SCH (09:51)
[2017-11-13] MEDS: ASCORBIC ACID 500 MG TAB PO SCH ×2 (09:55→21:34)
[2017-11-13] MEDS: METOPROLOL TARTRATE 25 MG TAB PO SCH ×2 (09:55→21:34)
[2017-11-13] MEDS: MULTIPLE VITAMIN TAB PO SCH (09:57)
[2017-11-13] MEDS: predniSONE 20 MG TAB PO SCH (09:57)
[2017-11-13] MEDS: PANTOPRAZOLE 40 MG TAB PO SCH ×2 (10:01→21:34)
[2017-11-13] MEDS: AMIODARONE HCL 200 MG TAB PO SCH (10:01)
[2017-11-13] MEDS: LEVOFLOXACIN 500MG 100 ML IV SCH (10:04)
[2017-11-13] MEDS: FAMOTIDINE (10MG/ML) 2ML VL IV SCH ×2 (10:04→21:33)
[2017-11-13 13:00] VITALS: BP 118/69
[2017-11-13 16:52] VITALS: BP 144/76
[2017-11-13] MEDS: VANCOMYCIN 1,250 MG in D5W 5% 250 ML IV SCH (19:45)
[2017-11-13] MEDS: DONNATAL 5ml ORAL Elix (BELLADONNA ALK-PHENOBARB) PO SCH (21:34)
[2017-11-13 22:00] VITALS: BP 145/85
[2017-11-14] MEDS: SODIUM CHLORIDE 0.9% 1,000 ML IV SCH ×3 (00:10→16:18)
[2017-11-14 05:00] VITALS: BP 141/83
[2017-11-14] MEDS: METOCLOPRAMIDE HCL 5MG/ml INJ 2ml VIAL IV SCH ×3 (05:41→18:05)
[2017-11-14] MEDS: ZINC OXIDE 20 % OINT 30GM TOP SCH ×3 (05:41→18:06)
[2017-11-14] MEDS: DONNATAL 5ml ORAL Elix (BELLADONNA ALK-PHENOBARB) PO SCH ×4 (05:41→21:56)
[2017-11-14 06:30] LABS: Hematocrit 36.2 % (41.0-53.0); Hemoglobin 12.1 g/dL (13.5-17.5); Mean Corpuscular Hemoglobin 29.6 pg (28.0-32.0); Mean Corpuscular Hgb Conc. 33.3 g/dL (32.0-36.0); Mean Corpuscular Volume 88.8 fL (80.0-100.0); Platelet Count (auto) 257 10^3/uL (140-450); Red Blood Cells 4.07 10^6/uL (4.5-5.90); Red Cell Distribution Width 17.3 % (11.8-14.3); White Blood Cell 8.2 10^3/uL (4.4-10.8)
[2017-11-14 06:37] LABS: Band Neutrophils % (manual) 0; Basophils % (manual) 0 (0.0-2.0); Eosinophils % (manual) 0 (0-7); Metamyelocytes % 0; Myelocytes % 0
[2017-11-14 06:38] LABS: Blast Cells 0; Promyelocytes % 0; Reactive Lymphocytes 0
[2017-11-14 06:55] LABS: Lymphocytes % (manual) 29 (10.0-50.0); Monocytes % (manual) 9 (0-12)
[2017-11-14 07:06] LABS: Calcium 8.2 mg/dL (8.5-10.1); Potassium 3.5 mmol/L (3.5-5.1)
[2017-11-14 07:08] LABS: BUN/Creatinine Ratio 6.5
[2017-11-14] MEDS: BOOST PLUS 8 ounce PO SCH ×3 (08:00→18:05)
[2017-11-14 08:50] VITALS: BP 118/58
[2017-11-14] MEDS: FAMOTIDINE (10MG/ML) 2ML VL IV SCH ×2 (09:48→22:18)
[2017-11-14] MEDS: FLUCONAZOLE 200MG/100ML 100 ML IV SCH (09:48)
[2017-11-14] MEDS: LEVOFLOXACIN 500MG 100 ML IV SCH (09:48)
[2017-11-14] MEDS: AMIODARONE HCL 200 MG TAB PO SCH (09:49)
[2017-11-14] MEDS: ASCORBIC ACID 500 MG TAB PO SCH ×2 (09:50→22:18)
[2017-11-14] MEDS: predniSONE 20 MG TAB PO SCH (09:50)
[2017-11-14] MEDS: PANTOPRAZOLE 40 MG TAB PO SCH ×2 (09:50→22:18)
[2017-11-14] MEDS: MULTIPLE VITAMIN TAB PO SCH (09:50)
[2017-11-14] MEDS: METOPROLOL TARTRATE 25 MG TAB PO SCH ×2 (09:51→22:17)
[2017-11-14 12:18] VITALS: BP_SYST 126; BP_SYST 152; BP_DIAS 62; BP_DIAS 97
[2017-11-14 17:28] VITALS: BP 122/58
[2017-11-14] MEDS: VANCOMYCIN 1,250 MG in D5W 5% 250 ML IV SCH (20:07)
[2017-11-14 22:00] VITALS: BP 139/73
[2017-11-15] MEDS: METOCLOPRAMIDE HCL 5MG/ml INJ 2ml VIAL IV SCH ×4 (00:12→18:10)
[2017-11-15] MEDS: SODIUM CHLORIDE 0.9% 1,000 ML IV SCH ×2 (01:36→09:30)
[2017-11-15 05:00] VITALS: BP 123/71
[2017-11-15] MEDS: DONNATAL 5ml ORAL Elix (BELLADONNA ALK-PHENOBARB) PO SCH ×3 (05:53→22:00)
[2017-11-15] MEDS: ZINC OXIDE 20 % OINT 30GM TOP SCH ×4 (06:00→18:11)
[2017-11-15] MEDS: BOOST PLUS 8 ounce PO SCH ×3 (08:00→18:10)
[2017-11-15 08:51] VITALS: BP 148/76
[2017-11-15] MEDS: FAMOTIDINE (10MG/ML) 2ML VL IV SCH ×2 (09:56→22:08)
[2017-11-15] MEDS: predniSONE 20 MG TAB PO SCH (09:56)
[2017-11-15] MEDS: FLUCONAZOLE 200MG/100ML 100 ML IV SCH (09:56)
[2017-11-15] MEDS: LEVOFLOXACIN 500MG 100 ML IV SCH (09:56)
[2017-11-15] MEDS: MULTIPLE VITAMIN TAB PO SCH (09:56)
[2017-11-15] MEDS: ASCORBIC ACID 500 MG TAB PO SCH ×2 (09:57→22:08)
[2017-11-15] MEDS: PANTOPRAZOLE 40 MG TAB PO SCH ×2 (09:57→22:08)
[2017-11-15] MEDS: AMIODARONE HCL 200 MG TAB PO SCH (09:57)
[2017-11-15] MEDS: METOPROLOL TARTRATE 25 MG TAB PO SCH ×2 (09:59→22:08)
[2017-11-15] MEDS: HYDROcodone-ACET 5/325MG TAB PO PRN ×3 (11:04→18:44)
[2017-11-15 12:28] VITALS: BP 133/70
[2017-11-15 16:33] VITALS: BP 121/66
[2017-11-15] MEDS ORDERED: CARISOPRODOL 350 MG TAB PO ONE (18:15)
[2017-11-15] MEDS: VANCOMYCIN 1,250 MG in D5W 5% 250 ML IV SCH (19:52)
[2017-11-15 22:00] VITALS: BP 124/70
[2017-11-16] MEDS: METOCLOPRAMIDE HCL 5MG/ml INJ 2ml VIAL IV SCH ×3 (01:14→14:00)
[2017-11-16] MEDS: ZINC OXIDE 20 % OINT 30GM TOP SCH ×3 (01:14→12:00)
[2017-11-16 04:55] VITALS: BP 134/80
[2017-11-16] MEDS: DONNATAL 5ml ORAL Elix (BELLADONNA ALK-PHENOBARB) PO SCH ×2 (05:19→14:00)
[2017-11-16 08:00] VITALS: BP 133/74
[2017-11-16] MEDS: BOOST PLUS 8 ounce PO SCH ×2 (08:00→12:00)
[2017-11-16 09:13] VITALS: BP 130/83
[2017-11-16 09:27] VITALS: BP 133/79
[2017-11-16] MEDS: FAMOTIDINE (10MG/ML) 2ML VL IV SCH (10:00)
[2017-11-16] MEDS: predniSONE 20 MG TAB PO SCH (10:01)
[2017-11-16] MEDS: AMIODARONE HCL 200 MG TAB PO SCH (10:02)
[2017-11-16] MEDS: ASCORBIC ACID 500 MG TAB PO SCH (10:02)
[2017-11-16] MEDS: MULTIPLE VITAMIN TAB PO SCH (10:02)
[2017-11-16] MEDS: PANTOPRAZOLE 40 MG TAB PO SCH (10:02)
[2017-11-16] MEDS: METOPROLOL TARTRATE 25 MG TAB PO SCH (10:05)
[2017-11-16] MEDS: LEVOFLOXACIN 500MG 100 ML IV SCH (10:05)
[2017-11-16] MEDS: FLUCONAZOLE 200MG/100ML 100 ML IV SCH (10:05)
[2017-11-16 11:43] VITALS: BP 113/62
== END 2017-11-16 17:20 | disposition hospice, home (50) | DRG 871 ==
LOC: ER 07:30 → EDBD 07:30 → OVERFLOW 07:31 → EAST 23:29
PROVIDERS: ADMIT Internal Medicine; ATTEND Internal Medicine
PROC: 0D758ZZ Dilation of Esophagus, Via Natural or Artificial Opening Endoscopic (ICD-10-PCS; principal; 2017-11-09 11:40)
DX: A41.9 Sepsis, unspecified organism (principal); E43 Unspecified severe protein-calorie malnutrition; I48.91 Unspecified atrial fibrillation; I13.0 Hypertensive heart and chronic kidney disease with heart failure and stage 1 through stage 4 chronic kidney disease, or unspecified chronic kidney disease; E86.0 Dehydration; I48.92 Unspecified atrial flutter; R13.10 Dysphagia, unspecified; D63.8 Anemia in other chronic diseases classified elsewhere; I50.9 Heart failure, unspecified; N39.0 Urinary tract infection, site not specified; J98.11 Atelectasis; N18.3 Chronic kidney disease, stage 3 (moderate); E66.9 Obesity, unspecified; Z51.5 Encounter for palliative care; Z66 Do not resuscitate; Z68.32 Body mass index [BMI] 32.0-32.9, adult
CPT/HCPCS: 36415; 43233; 71250; 76775; 80048; 80053; 80202; 81001; 83605; 83880; 84443; 84484; 85007; 85025; 85027; 85610; 85730; 87040; 87077; 87081; 87086; 87088; 87186; 92610; 93005; 96361; 96374; 97163; C9113; J1450; J1956; J2250; J2405; J3490; J7060